=== PATIENT | male | born 1960 | race Two or more races ===

== ENCOUNTER 2019-10-23 18:30 | Emergency (ER) | payer SELFPAY ==
[~2019-10-23] VITALS: Ht 167.6 cm; Wt 72.6 kg
[2019-10-23 19:06] VITALS: BP 144/86
[2019-10-23] MEDS ORDERED: IBUPROFEN 800 MG TAB PO ONE (19:45)
[2019-10-23] MEDS ORDERED: LIDOCAINE 1% HCL (LOCAL ANESTH.) INJ 20ML MDV IJ ONE (21:30)
[2019-10-23] MEDS ORDERED: NEOMYCIN-BACITRACIN-POLYM UNITDOSE PKG TOP OINT TOP ONE (23:00)
== END 2019-10-23 23:23 | disposition home or self-care (01) ==
LOC: ER 18:30
DX: L72.3 Sebaceous cyst (principal); L98.8 Other specified disorders of the skin and subcutaneous tissue
CPT/HCPCS: 11424; 12002; 76536